=== PATIENT | female | born 1955 | race Caucasian/White ===

== ENCOUNTER 2019-09-21 15:31 | Emergency (ER) | payer OTHER ==
[~2019-09-21] VITALS: Ht 170.2 cm; Wt 86.2 kg
[~2019-09-21 15:31] MED LIST: AMOXICILLIN875 MG PO; FLONASE 0.05%50 MCG NASAL; ZOFRAN ODT4 MG PO
[2019-09-21] MEDS ORDERED: TRIAMCINOLONE A15 G1 TP (16:05)
[2019-09-21] MEDS ORDERED: PREDNISONE 10 M10 MG PO (16:05)
[2019-09-21 16:47] VITALS: BP 129/95
== END 2019-09-21 16:48 | disposition home or self-care (01) ==
LOC: M.ERS 15:31
DX: L24.7 Irritant contact dermatitis due to plants, except food (principal)

== ENCOUNTER 2019-10-13 13:22 | Emergency (ER) | payer OTHER ==
[~2019-10-13] VITALS: Ht 170.2 cm; Wt 86.2 kg
[~2019-10-13 13:22] MED LIST changes: +PREDNISONE 10 M10 MG PO; +TRIAMCINOLONE A15 G1 TP
[2019-10-13 13:45] LABS: URINE BILIRUBIN NEGATIVE (Negative); URINE BLOOD NEGATIVE (Negative); URINE CLARITY CLEAR; URINE COLOR YELLOW; URINE GLUCOSE-RANDOM NEGATIVE (Negative); URINE KETONES NEGATIVE (Negative); URINE LEUKOCYTES-REFLEX 1+ (Negative); URINE NITRITE-REFLEX NEGATIVE (Negative); URINE PROTEIN NEGATIVE (Negative); URINE UROBILINOGEN 0.2 E.U./dl (0.2-1.0)
[2019-10-13 13:53] LABS: SQUAMOUS 0-3 Few /LPF (0-3)
[2019-10-13 13:54] LABS: BACTERIA-REFLEX 1-9 Few /HPF (None Seen); CASTS None Seen /LPF (None Seen); CRYSTALS None Seen /LPF (None Seen); URINE RBC 0-2 Rare /HPF (0-2); URINE WBC-REFLEX 0-5 Rare /HPF (0-5)
[2019-10-13 13:55] LABS: ABSOLUTE BASOPHILS 0.1 thou/uL (0.0-0.2); ABSOLUTE EOSINOPHILS 0.1 thou/uL (0.0-0.7); ABSOLUTE LYMPHOCYTES 1.7 thou/uL (0.8-5.3); ABSOLUTE MONOCYTES 1.1 thou/uL (0.0-1.2); ABSOLUTE NEUTROPHILS 8.3 thou/uL (1.6-8.1); HEMATOCRIT 41.1 % (37.0-47.0); HEMOGLOBIN 14.2 gm/dL (12.0-15.0); MCH 31.7 pg (26.0-34.0); MCHC 34.5 g/dL (28.0-37.0); MCV 91.9 fL (80.0-100.0); MONOCYTES 9.6 %; MPV 7.9 fl. (7.2-11.1); NUCLEATED RBCS 0 /100WBC; PLATELET COUNT* 210 thou/uL (150-400); POLYS 73.4 %; RBC 4.48 mil/uL (4.20-5.00); RDW-CV 13.8 % (10.5-14.5); WBC 11.3 thou/uL (4.0-11.0)
[2019-10-13 14:22] LABS: CALCIUM 8.6 mg/dL (8.5-10.1); CREATININE 0.8 mg/dL (0.6-1.3); POTASSIUM 4.1 mmol/L (3.5-5.1)
[2019-10-13 14:25] LABS: ALBUMIN 3.6 g/dL (3.4-5.0); TOTAL BILIRUBIN 0.3 mg/dL (<0.1-1.0); TOTAL PROTEIN 7.6 g/dL (6.4-8.2)
[2019-10-13] MEDS ORDERED: PROAIR HFA8.5 GM INH (14:46)
[2019-10-13] MEDS ORDERED: ZPAK PO (14:46)
[2019-10-13] MEDS ORDERED: TYLENOL WITH CO1 TA1 PO (14:46)
[2019-10-13 15:30] VITALS: BP 115/75
== END 2019-10-13 15:31 | disposition home or self-care (01) ==
LOC: M.ERS 13:22
PROVIDERS: Physician Assistant
DX: J18.9 Pneumonia, unspecified organism (principal); Z03.818 Encounter for observation for suspected exposure to other biological agents ruled out; Z90.710 Acquired absence of both cervix and uterus

== ENCOUNTER 2020-02-19 13:38 | Emergency (ER) | payer OTHER ==
[~2020-02-19] VITALS: Ht 165.1 cm; Wt 90.7 kg
[~2020-02-19 13:38] MED LIST changes: +PROAIR HFA8.5 GM INH; +TYLENOL WITH CO1 TA1 PO; +ZPAK PO
[2020-02-19] MEDS ORDERED: DOXYCYCLINE 10100 MG PO (14:30)
[2020-02-19] MEDS ORDERED: NORCO 5-325 TA1 EAC2 PO (14:30)
[2020-02-19 15:01] VITALS: BP 138/70
== END 2020-02-19 15:01 | disposition home or self-care (01) ==
LOC: M.ERS 13:38
DX: N76.2 Acute vulvitis (principal); N76.4 Abscess of vulva; Z90.711 Acquired absence of uterus with remaining cervical stump; Z79.899 Other long term (current) drug therapy